=== PATIENT | male | born 1940 | race Caucasian/White ===

== ENCOUNTER → 2019-01-02 | Outpatient (REF) | LOC: M LAB LCGH 13:32 | PROVIDERS: ATTEND Physician Assistant | DX: C43.9 Malignant melanoma of skin, unspecified (principal) ==

== ENCOUNTER → 2019-01-02 | Outpatient (REF) | payer MEDICARE | LOC: M LAB LCGH 12:44 | PROVIDERS: ATTEND Pathology Cytopathology | DX: D48.5 Neoplasm of uncertain behavior of skin (principal) ==

== ENCOUNTER → 2019-02-28 | Outpatient (CLI) | payer MEDICARE, OTHER ==
[2019-02-28 11:17] LABS: CREATININE FOR GFR 1.48 MG/DL (0.70-1.30); GLOMERULAR FILTRATION RATE 49.2 (>42)
== END ==
LOC: M LAB 09:02
PROVIDERS: ATTEND Nurse Practitioner
DX: C43.9 Malignant melanoma of skin, unspecified (principal)

== ENCOUNTER → 2019-03-06 | Outpatient (CLI) | payer MEDICARE, OTHER ==
[~2019-03-06] MED LIST: PROHANCE 279.3MG/ML 5ML VIAL (A9576) As Ordered ONE
--- NOTE | 2019-03-06 10:07 | REP ---
MRI brain: 03/06/2019. Indication: Melanoma. Metastatic workup. Comparison: None. Technique: Multiplanar short and long TR sequences of the brain were obtained including post IV Gadolinium imaging. 8 ml IV ProHance were administered. Findings: There are no areas of restricted diffusion or pathologic gadolinium enhancement. Age-related volume loss is present. Right-sided mastoid effusion is noted. No significant signal abnormalities are present within the brainstem or brain parenchyma. There is no evidence of intracranial hemorrhage. There is no hydrocephalus or significant mass effect. Intracranially. The large intracranial flow voids are unremarkable. Impression: There is no acute intracranial process or evidence of intracranial metastatic disease. Age-related volume loss. Right mastoid effusion. Electronically Signed by Gilbert Norton DO 03/06/2019 09:59 A
== END ==
LOC: M RAD 07:06
PROVIDERS: ATTEND Surgery Surgical Oncology
DX: C43.9 Malignant melanoma of skin, unspecified (principal); C77.9 Secondary and unspecified malignant neoplasm of lymph node, unspecified
CPT/HCPCS: 70553; A9576

== ENCOUNTER → 2019-03-11 | Outpatient (CLI) | payer OTHER ==
--- NOTE | 2019-03-12 15:21 | REP ---
PET/CT: History: Melanoma staging. Metastatic melanoma to the left axilla. Evaluate for distant disease. Comparisons: No relevant comparison imaging. TECHNIQUE: 61 minutes following the intravenous injection of a 8.64 mCi dose of F-18 FDG, three-dimensional PET scintigraphy is acquired from the skull vertex to the toes. Triplanar noncontrast CT scanning is acquired through the same anatomic range for attenuation correction, and image registration with scan parameters optimized to minimize radiation exposure to the patient. PET scintigraphy and CT datasets were fused and displayed on a workstation with multiplanar and projection display capability. PET/CT Findings: There are surgical clips adjacent to a low density fluid collection in the left axilla consistent with hematoma seroma. There is minimally increased uptake adjacent to this surgical site. Maximum standard uptake value in the range of 2.77. There is no evidence of hypermetabolic mass or adenopathy. There is a small subcutaneous air bubble with some overlying linear streaky density in the subcutaneous fat posteriorly in the left shoulder. This is compatible with a recent surgical site as well. There is no significant radiopharmaceutical deposition here. There is no evidence of axillary hypermetabolic uptake. Head and neck soft tissues show no evidence of hypermetabolic adenopathy. There is no abnormal pulmonary parenchymal hypermetabolic uptake. In the abdomen and pelvis, there is normal hepatic, splenic, gastrointestinal, and genitourinary FDG accumulation. No abnormal abdominal or pelvic hypermetabolic uptake is seen. No abnormal uptake is seen in the lower extremities. Impression: There are postoperative changes in the left axilla and left posterior shoulder subcutaneous region. No abnormal hypermetabolic uptake is seen. Electronically Signed by Ed Richardson MD 03/12/2019 04:44 P
== END ==
LOC: M PLARAD 11:03
PROVIDERS: ATTEND Surgery Surgical Oncology
DX: D43.9 Neoplasm of uncertain behavior of central nervous system, unspecified (principal); C77.8 Secondary and unspecified malignant neoplasm of lymph nodes of multiple regions
CPT/HCPCS: 78816; A9552

== ENCOUNTER → 2019-03-24 | Outpatient (CLI) | payer MEDICARE, OTHER ==
[~2019-03-24] MED LIST changes: +ASPI81CH33 PO; +CALC600T60 PO; +ENAL20TA PO; +FERR325T3 PO; +FISH1000 PO; +GABA600T4 PO; +LANTINJ4 SC; +LIDOCAINE 1% MDV 20ML VIAL As Ordered ONE; +METF-839 PO; +MIDAZOLAM INJ 2 MG/2 ML VIAL (J2250) As Ordered ONE; +MULTCAP PO; +NOVOINJ3 SC; -PROHANCE 279.3MG/ML 5ML VIAL (A9576) As Ordered ONE; +VITA100066 PO; +ZOCO80TA PO; +ceFAZolin 1GM INJ (J0690 PER 500MG) As Ordered ONE; +diphenhydrAMINE INJ 50MG/ML VIAL (J1200) As Ordered ONE; +fentaNYL 100 MCG/2 ML INJECTION (J3010) As Ordered ONE
[2019-03-24 15:55] VITALS: BP 148/68
--- NOTE | 2019-03-24 16:09 | IRHP ---
[facility] IR Pre-Procedure H & P General Date of Service: Mar 24, 2019 Procedure: Same Day Surgery Interval History and Physical I have seen the patient and reviewed last H & P performed within 30 days. There is no significant interval change. History of Present Illness Chief Complaint The patient is a 78-year-old male admitted with a reason for visit of Metastatic Melanoma-Chemo. PRE-PROCEDURE DIAGNOSIS: melanoma HEART: normal rate. LUNGS: normal breathing at rest. ASA Classification ASA Classification: III-Severe systemic dis. Mallampati Score: II NPO: Yes Problems with prior sedation: No Obstructive Sleep Apnea: No Plan moderate sedation Allergies Coded Allergies: No Known Allergies (Unverified , 03/14/19) Home Medications Scheduled Aspirin (Aspirin), 81 MG PO DAILY, (Reported) Calcium Carbonate (Calcium), 600 MG PO DAILY, (Reported) Cholecalciferol (Vitamin D3) (Vitamin D3), 1,000 UNIT PO DAILY, (Reported) Enalapril Maleate (Enalapril Maleate), 20 MG PO BID, (Reported) Enalapril Maleate (Enalapril Maleate), 1 TAB PO BID, (Reported) Ferrous Sulfate (Ferrous Sulfate), 325 MG PO DAILY, (Reported) Gabapentin (Gabapentin), 300 MG PO QPM, (Reported) Insulin Aspart (Novolog Flexpen), 1 UNITS SC TID, (Reported) Insulin Glargine,Hum.rec.anlog (Lantus Solostar), 60 UNIT SC QAM, (Reported) Metformin HCl (Metformin HCl), 500 MG PO BID, (Reported) Multivitamin (Multivitamins), 1 CAP PO DAILY, (Reported) [place]-3 Fatty Acids/Fish Oil (Fish Oil 1,000 mg Capsule), 1,000 MG PO BID, (Reported) Simvastatin (Zocor), 40 MG PO QPM, (Reported) VS, I&O, 24H, Fishbone Vital Signs/I&O Vital Signs Date Time Temp Pulse Resp B/P (MAP) Pulse Ox O2 Delivery O2 Flow Rate FiO2 03/24/19 15:25 70 16 95 Room Air 03/24/19 14:20 3 03/24/19 13:49 97.8 SUKH BRAND MD Mar 24, 2019 16:09
--- NOTE | 2019-03-24 16:10 | POST-OPPD ---
Postoperative Procedure Note Date Of Procedure: Mar 24, 2019 Time Of Procedure: 16:09 PREOPERATIVE DIAGNOSIS: melanoma POSTOPERATIVE DIAGNOSIS: same FINDINGS: patent right IJ PROCEDURE: right side port SURGEON: dorian ANESTHESIA: mod sed ESTIMATED BLOOD LOSS: < 5 ml COMPLICATIONS: none POSTOPERATIVE CONDITION: stable SUKH BRAND MD Mar 24, 2019 16:10
--- NOTE | 2019-03-25 09:51 | REP ---
IR Ultrasound and fluoroscopy-guided port placement. IR Ultrasound of the neck. IR Moderate sedation. Clinical information: Melanoma. Physician: Dr. Cleaning. Procedure: The patient was advised of the benefits, risks, and alternatives of the procedure and informed consent was obtained. A time-out was performed with verification of the patient's name, MRN, site of procedure and type of procedure to be performed. The patient was positioned in the supine position on the angiographic table. The site was prepped and draped in the usual sterile fashion. Moderate sedation was performed by the physician including the presence of an independent trained observer who assisted and monitored the patient's level of consciousness and physiologic status. Following the administration of fentanyl and Versed, the physician spent 45 minutes of continuous face to face time with the patient. Ultrasound of the neck reveals a patent and compressible right internal jugular vein. A medical housekeeper radiograph reveals no gross abnormality. The neck and anterior chest wall were anesthetized with lidocaine. The right internal jugular vein was accessed using a microintroducer needle under ultrasound guidance, via a lateral approach. An 018 wire was advanced into the superior vena cava, the needle was removed and a microsheath was placed. An Amplatz wire was then passed into the inferior vena cava. An incision at the internal jugular vein access site and anterior chest wall were made using a scalpel. An incision was made at the anterior chest wall. A small pocket was created using a combination of blunt and sharp dissection. A tunneling device was then used to pass the catheter from the pocket to the neck puncture site. An 8-[place] [employer] Smart power port was then positioned in the pocket. The catheter was then measured and cut. The introducer sheath was exchanged for a peel-away sheath. The catheter was passed through the peel-away sheath into the internal jugular vein and the peel-away sheath was removed. The port tip was positioned at the cavoatrial junction. The port was then accessed with a Palomares needle. The port flushes and aspirates well. The puncture site in the neck was closed. The chest wall incision was then closed with 2-0 Vicryl and 4-0 Monocryl. Glue and Steri-Strips were applied. A sterile dressing was then applied. The patient tolerated the procedure well and was returned to the PRU in stable condition. Estimated blood loss: <5 ml. Complications: None. Conclusion: 1. Successful placement of an 8-[place] [employer] Smart power port via the right internal jugular vein. The port is ready for immediate use. 2. Patient to follow up in IR clinic in 2 weeks. Thank you for this referral. Electronically Signed by Rani Cleaning MD 03/25/2019 09:50 A
== END ==
LOC: M IRPRO 12:58
PROVIDERS: ATTEND Internal Medicine Hematology & Oncology
DX: C43.59 Malignant melanoma of other part of trunk (principal); Z79.899 Other long term (current) drug therapy; Z79.82 Long term (current) use of aspirin
CPT/HCPCS: 36561; 99152; 99153; C1769; C1788; C1894; J0690; J1200; J2250; J3010

== ENCOUNTER → 2019-12-08 | Outpatient (CLI) | payer MEDICARE ==
[~2019-12-08] MED LIST changes: -ENAL20TA PO; +ENAL20TA11 PO; -LIDOCAINE 1% MDV 20ML VIAL As Ordered ONE; -MIDAZOLAM INJ 2 MG/2 ML VIAL (J2250) As Ordered ONE; +VITA100054 PO; -ceFAZolin 1GM INJ (J0690 PER 500MG) As Ordered ONE; -diphenhydrAMINE INJ 50MG/ML VIAL (J1200) As Ordered ONE; -fentaNYL 100 MCG/2 ML INJECTION (J3010) As Ordered ONE
--- NOTE | 2019-12-15 11:58 | REP ---
PET CT HISTORY: Restaging melanoma. COMPARISON: 03/11/2019. TECHNIQUE: 47 minutes following the intravenous injection of an 8.02 mCi dose of F18 fluorodeoxyglucose (FDG), three-dimensional PET CT imaging was acquired from the skull vertex to the toes. PET CT FINDINGS: No intracranial or scalp abnormality is observed. Head and neck soft tissues are unremarkable. There is a right-sided Infusaport catheter. No hilar or mediastinal mass of hypermetabolic uptake is seen. No abnormal pulmonary parenchymal hypermetabolic uptake is appreciated. No infiltrate or lung mass lesion is seen. There are surgical clips and sutures in the left axilla from previous lymph node dissection. Similarly, there are surgical clips and sutures in the right axilla from the more recent lymph node dissection. No abnormal hypermetabolic uptake is seen in either axillary region. The patient is status post cholecystectomy. No abnormal hypermetabolic uptake is seen in the liver or spleen. No abnormal jean uptake is seen in the abdomen or pelvis. No suspicious activity is seen in the lower extremities. IMPRESSION: Postoperative changes. Otherwise negative PET CT study. MTDD
== END ==
LOC: M PLARAD 08:12
PROVIDERS: ATTEND Internal Medicine Medical Oncology
DX: C43.59 Malignant melanoma of other part of trunk (principal)
CPT/HCPCS: 78816; A9552

== ENCOUNTER → 2020-02-19 | Outpatient (CLI) | payer MEDICARE ==
[~2020-02-19] MED LIST changes: +LIDOCAINE 1% MDV 20ML VIAL As Ordered ONE; +MIDAZOLAM INJ 2MG/2ML VIAL (J2250 PER 1MG) As Ordered ONE; +ceFAZolin 2 GM/D5W 50 ML IV BAG (J0690 PER 500MG) As Ordered ONE; +diphenhydrAMINE 50MG/ML VIAL (J1200) As Ordered ONE; +fentaNYL 100 MCG/2 ML INJECTION (J3010) As Ordered ONE
[2020-02-19 13:30] VITALS: BP 157/82
--- NOTE | 2020-02-20 11:26 | POST-OPPD ---
Postoperative Procedure Note Date Of Procedure: Feb 19, 2020 Time Of Procedure: 16:00 Port Removal / Explant Clinical Information:Melanoma. Treatment complete. Would like port removed. Physician: Dr. Cleaning Procedure: The patient was advised of the benefits, risks, and alternatives of the procedure and informed consent was obtained. A time out was performed with verification of the patient's name, MRN, site of procedure, and type of procedure to be performed. The patient was positioned in the supine position on the angiographic table. The site was prepped and draped in the usual sterile fashion. Moderate sedation was performed by the physician including the presence of an independent trained RN who assisted in monitoring the patient's level of consciousness and physiological status. Following the administration of fentanyl and Versed the physician spent 30 minutes of continuous [id number] time with the patient. A carpenter helper maintenance radiograph reveals a right-sided port. The soft tissues overlying the port were anesthetized with lidocaine. An incision was made over the port using a 15 blade scalpel in the location of the prior incision. The catheter was then freed with blunt dissection and ext racted. Pressure was applied to obtain hemostasis. The port was then freed with blunt dissection and subsequently removed. There were no signs of infection. After hemostasis was achieved, the incision was closed with interrupted deep 3-0 Vicryl sutures and subcuticular Monocryl suture followed by glue and steri-strips. The site was covered with a sterile dressing. The patient tolerated the procedure well and was returned to the PRU in stable condition. EBL:Less than 5 mL Complications:None. Conclusions: 1. Successful explant of a right-sided port. 2. No signs of infection. Thank you for this referral SUKH CLEANING MD Feb 20, 2020 11:26
== END ==
LOC: M IRPRO 09:30
PROVIDERS: ATTEND Internal Medicine Medical Oncology
DX: C43.59 Malignant melanoma of other part of trunk (principal); C43.61 Malignant melanoma of right upper limb, including shoulder; C77.8 Secondary and unspecified malignant neoplasm of lymph nodes of multiple regions
CPT/HCPCS: 36590; 99152; J0690; J1644; J2250; J3010

== ENCOUNTER → 2020-03-09 | Outpatient (POV) | payer MEDICARE ==
[~2020-03-09] MED LIST changes: -LIDOCAINE 1% MDV 20ML VIAL As Ordered ONE; -MIDAZOLAM INJ 2MG/2ML VIAL (J2250 PER 1MG) As Ordered ONE; -ceFAZolin 2 GM/D5W 50 ML IV BAG (J0690 PER 500MG) As Ordered ONE; -diphenhydrAMINE 50MG/ML VIAL (J1200) As Ordered ONE; -fentaNYL 100 MCG/2 ML INJECTION (J3010) As Ordered ONE
--- NOTE | 2020-03-15 12:38 | IRPN ---
[facility] IR Progress Note IR Progress Note DATE: Mar 09, 2020 No answer Allergies Coded Allergies: No Known Allergies (Unverified , 03/14/19) SUKH BRAND MD Mar 15, 2020 12:38
== END ==
LOC: M TMIRPOV 15:32
PROVIDERS: ATTEND Radiology Diagnostic Radiology
DX: Z45.2 Encounter for adjustment and management of vascular access device (principal)

== ENCOUNTER → 2020-08-30 | Outpatient (CLI) | payer MEDICARE, OTHER ==
[~2020-08-30] MED LIST changes: +COVI100V IM; +D31000TA2 PO; +LOSA100T5 PO; +MULT-90 PO
--- NOTE | 2020-08-31 14:39 | REP ---
INDICATION: RESTAGING AXILLA METS FROM MELANOMA C77.3. COMPARISON: Comparison PET-CT study March 11, 2019 and December 08, 2019.. TECHNIQUE: Fifty minutes following the intravenous injection of a 7.73 mCi dose of F-18 FDG, three-dimensional PET scintigraphy is acquired from the skull vertex to the toes. Triplanar noncontrast CT scanning is acquired through the same anatomic range for attenuation correction, and image registration with scan parameters optimized to minimize radiation exposure to the patient. PET scintigraphy and CT datasets were fused and displayed on a workstation with multiplanar and projection display capability. FINDINGS: Head and neck soft tissues are unremarkable. No supraclavicular adenopathy or hypermetabolic uptake is visible. There is a 9 mm soft tissue nodule in the subcutaneous fat superficial to the inferior aspect of the left scapula. This shows discernible but non hypermetabolic FDG uptake, maximum standard uptake value is 1.67. There was no visible uptake here previously. This is the region where prior study from March 11, 2019 showed post excision soft tissue air and edema. There are surgical sutures in the axillary regions bilaterally. No abnormal sized lymph node is seen. There are normal-sized lymph nodes in each axilla. No hypermetabolic uptake is seen. Maximum standard uptake value in a left axillary lymph node is 1.87 and that in a right axillary lymph node measures 1.48. These nodes do not appear morphologically abnormal. There is no abnormal hilar or mediastinal hypermetabolic jean uptake. No abnormal pulmonary parenchymal uptake is appreciated. There are a few scattered tiny subcentimeter nodules in the lung parenchyma unchanged from PET-CT study from March 11, 2019. No new pulmonary nodule is appreciated. In the abdomen and pelvis, there is normal hepatic, splenic, gastrointestinal, and genitourinary FDG accumulation. No abnormal hypermetabolic uptake is seen in the abdomen or pelvis. Whole body lower extremity acquisition is unremarkable. IMPRESSION: There is a 9 mm soft tissue nodule in the subcutaneous fat at the site of a previous repair resection for melanoma overlying the inferior aspect of the left scapula. This shows visible but non hypermetabolic uptake. Postoperative change versus residual recurrent melanoma. Consider soft tissue ultrasound for further characterization and localization. The nodule can be visualized sonographically, ultrasound could be used for fine-needle aspiration. No other suspicious area of increased uptake. <Electronically signed by Hugh Richardson > 08/30/20 [id number]
== END ==
LOC: M PLARAD 10:50
PROVIDERS: ATTEND Internal Medicine Medical Oncology
DX: C77.3 Secondary and unspecified malignant neoplasm of axilla and upper limb lymph nodes (principal)
CPT/HCPCS: 78815; A9552

== ENCOUNTER → 2021-06-20 | Outpatient (CLI) | payer OTHER ==
[~2021-06-20] MED LIST changes: -D31000TA2 PO; +TRES1INJ2 SC; +VITA100093 PO
== END ==
LOC: M PLARAD 11:11
PROVIDERS: ATTEND Internal Medicine Medical Oncology
DX: C77.3 Secondary and unspecified malignant neoplasm of axilla and upper limb lymph nodes (principal)
CPT/HCPCS: 78816; A9552

== ENCOUNTER → 2022-01-30 | Outpatient (CLI) | payer OTHER | LOC: M PLARAD 08:49 | PROVIDERS: ATTEND Nurse Practitioner Family | DX: C43.59 Malignant melanoma of other part of trunk (principal); C43.61 Malignant melanoma of right upper limb, including shoulder | CPT/HCPCS: 78815; A9552 ==

== ENCOUNTER → 2022-12-25 | Outpatient (CLI) | payer MEDICARE ==
[~2022-12-25] MED LIST changes: +ENAL1TAB52 PO; -ENAL20TA11 PO
== END ==
LOC: M PLARAD 13:35
PROVIDERS: ATTEND Obstetrics & Gynecology
DX: C43.61 Malignant melanoma of right upper limb, including shoulder (principal)
CPT/HCPCS: 78816; A9552

== ENCOUNTER → 2023-01-09 | Outpatient (REF) | payer MEDICARE ==
[~2023-01-09] MED LIST changes: +OMEG10002 PO; +SIMV40TA20 PO
== END ==
LOC: M SFHCDERM 14:34
PROVIDERS: ATTEND Dermatology
DX: C43.61 Malignant melanoma of right upper limb, including shoulder (principal)

== ENCOUNTER → 2023-03-29 | Outpatient (CLI) | payer OTHER, MEDICARE | LOC: M ONCR 09:42 | PROVIDERS: ATTEND General Practice | DX: C43.61 Malignant melanoma of right upper limb, including shoulder (principal); Z98.890 Other specified postprocedural states; Z71.2 Person consulting for explanation of examination or test findings; Z79.4 Long term (current) use of insulin; Z79.82 Long term (current) use of aspirin; Z79.899 Other long term (current) drug therapy; Z80.8 Family history of malignant neoplasm of other organs or systems; Z92.25 Personal history of immunosuppression therapy ==

== ENCOUNTER → 2023-05-03 | Outpatient (RCR) | payer MEDICARE, OTHER | LOC: M ONCR 04-12 10:18 | PROVIDERS: ATTEND General Practice | DX: Z51.0 Encounter for antineoplastic radiation therapy (principal); D03.61 Melanoma in situ of right upper limb, including shoulder ==

== ENCOUNTER → 2023-06-01 | Outpatient (CLI) | payer OTHER | LOC: M ONCR 09:00 | PROVIDERS: ATTEND General Practice | DX: C43.61 Malignant melanoma of right upper limb, including shoulder (principal); L58.9 Radiodermatitis, unspecified | CPT/HCPCS: 10005; 88305; G0463 ==

== ENCOUNTER → 2023-11-09 | Outpatient (CLI) | payer OTHER ==
[~2023-11-09] MED LIST changes: +GABA-1490 PO; -GABA600T4 PO; +KETO0.5S4 OD; +PREDOPD OD; +VIGA0.02 OD
== END ==
LOC: M ONCR 11:14
PROVIDERS: ATTEND General Practice
DX: D03.61 Melanoma in situ of right upper limb, including shoulder (principal); Z79.620 Long term (current) use of immunosuppressive biologic; Z79.4 Long term (current) use of insulin; Z79.899 Other long term (current) drug therapy; Z79.82 Long term (current) use of aspirin; Z92.3 Personal history of irradiation; Z98.890 Other specified postprocedural states